=== PATIENT | male | born 1960 ===

== ENCOUNTER 2016-02-18 18:34 | Emergency (ER) | payer MEDICARE, MEDICAID ==
[~2016-02-18] VITALS: Ht 190.5 cm; Wt 95.5 kg
[~2016-02-18 18:34] MED LIST: ONDA8TAB10 PO; OXYC1TAB24 PO
[2016-02-18 19:21] VITALS: BP 174/104; PULSE 100; RESP 15; O2SAT 96
[2016-02-18 21:19] LABS: BASOPHILS % (AUTO) 0.5 % (0-3); EOSINOPHILS % (AUTO) 1.7 % (0-5); MONOCYTES % (AUTO) 8.1 % (4-12); Mean Corpuscular Volume 89.1 fL (81-100); NEUTROPHILS % (AUTO) 72.7 % (40-74); Platelet Count 344 bil/L (150-400)
[2016-02-18] MEDS ORDERED: 0.9% Sodium Chloride 1,000 ML IV SCH (21:25)
[2016-02-18] MEDS ORDERED: Ondansetron 2 mg/mL 2 mL Inj ONE (21:26)
[2016-02-18] MEDS: HYDROmorphone 1 mg/mL Inj IVPUSH PRN ×3 (21:40→23:53)
[2016-02-18 21:43] LABS: Magnesium 1.8 mg/dL (1.6-2.6)
[2016-02-18 22:47] VITALS: BP 193/112; PULSE 89; RESP 20; O2SAT 98
[2016-02-19] MEDS ORDERED: Labetalol 5 mg/mL 4 mL Inj IVPUSH ONE (00:30)
[2016-02-19] MEDS ORDERED: _oxyCODONE/APAP 5-325 mg Tablet PO PRN (00:35)
[2016-02-19 01:17] VITALS: BP 195/109; PULSE 71; RESP 18; O2SAT 97
[2016-02-19] MEDS ORDERED: hydrALAZINE 20 mg/mL Inj IV ONE (01:25)
--- NOTE | 2016-02-19 01:27 | ED.REPORT ---
HPI-Back Pain 40 and Over Date of Service Feb 18, 2016 ED Provider: Karri Lara DO History of Present Illness: Mr. Johnathon Quinteros is a 55 year old gentleman with a past medical history Significant for left renal Ca with nephrectomy in 2003 who presented to the [facility] emergency department after 5 day history of right sided sharp and colicky 10/10 flank pain and 2 day history of nonproductive cough and vomiting after ingestion of food or water. He was seen in the ED 01/30/16 for the same problem. A CT was obtained that showed a possible right sided renal mass with recommendations to follow up with additional imaging. He reports Nausea, vomiting, night sweats, cough, right sided flank pain, increased urination, and intermittant diarrhea. He denies headache, dizziness, chest pain, shortness of breath, abdominal tenderness/rebound tenderness, hematuria / hematochezia. Nursing Notes Stated Complaint: RT SIDED PAIN/ VOMITING Chief Complaint: RIGHT SIDED FLANK PAIN / VOMITING Nursing Notes Reviewed: Yes Allergies: Coded Allergies: morphine (Verified Adverse Reaction, Intermediate, Nausea,Vomiting, ) Scheduled PRN Ondansetron ODT (Ondansetron ODT) 8 Mg Tab.rapdis 8 MG PO Q4H PRN PRN For Nausea oxyCODONE-Acetaminophen 5-325 mg (oxyCODONE-Acetaminophen 5-325 mg) 1 Each Tablet 1-2 TAB PO BID PRN PRN For Pain General Time Seen by MD: 21:20 Chief Complaint Flank pain right, Cough Sudden in Onset?: Yes Past Medical History Past Medical History kidney cancer Past Surgical History left kidney removal 2003 hernia repair Smoking History Current Every Day Smoker (up to 3 packs per day at one point. ) Social History Alcohol Use: Denies alcohol use Drug Use: Denies drug use, THC Ambulatory Status Independent Review of Systems Review of Systems Note: A comprehensive review of systems was conducted with the patient and found to be negative except as above in the History of Present Illness. Physical Exam Physical Exam Notes: General: Late Middle aged gentleman lying in bed in moderate distress, well-developed, well-nourished, appropriately interactive HEENT: Normocephalic, atraumatic. External ears without defect. Pupils equal, round, and reactive to light and accommodation. Anicteric sclerae, moist conjunctivae, and no lid lag. Oropharynx free of erythema and cobble stoning with moist mucosa. Neck: Supple with full range of motion. No jugular venous distension. No bruits. No lymphadenopathy or thyromegaly. Cardiovascular: Regular rate and rhythm with no murmurs, rubs, or gallops appreciated Pulmonary: Clear to auscultation bilaterally with no crackles, wheezes, or rhonchi. Normal respiratory effort with no use of accessory muscles. Abdomen: Bowel tones present. Soft, nontender, nondistended. No hepatosplenomegaly or masses appreciated. Posterior right sided flank tender to palpation. Extremities: No clubbing, cyanosis, edema, or lymphadenopathy appreciated. Skin: Normal temperature, turgor, and texture; no rash, ulcers, or subcutaneous nodules appreciated. Neurological: Cranial nerves grossly intact. Normal muscle strength, tone, and bulk. Reflexes, coordination, and sensory function within normal limits. No known gait impairment. Psychiatric: Normal mood and affect. Alert and oriented to person, place, and time. Initial Vital Signs Vital Signs (First) Date Time Temp Pulse Resp B/P Pulse Ox O2 Delivery O2 Flow Rate FiO2 02/18/16 19:21 36.9 100 15 174/104 96 Room Air Interpretation & Diagnostics Lab Results Interpretation Result Diagram: 02/18/16 2100 02/18/16 2100 Test 02/18/16 21:00 02/19/16 00:43 White Blood Count 15.5th/mm3 (3.8-10.1) Red Blood Count 5.04mil/mm3 (4.40-5.80) Hemoglobin 14.6g/dL (13.8-17.2) Hematocrit 44.9% (41.0-50.0) Mean Corpuscular Volume 89.1fL (81-100) Mean Corpuscular Hemoglobin 29.0pg (27.0-35.0) Mean Corpuscular Hemoglobin Concent 32.5% (32.0-37.0) Red Cell Distribution Width 15.0% (12.3-15.4) Platelet Count 344bil/L (150-400) Neutrophils (%) (Auto) 72.7% (40-74) Lymphocytes (%) (Auto) 16.5% (14-46) Monocytes (%) (Auto) 8.1% (4-12) Eosinophils (%) (Auto) 1.7% (0-5) Basophils (%) (Auto) 0.5% (0-3) Sodium Level 136mEq/L (134-144) Potassium Level 4.1mEq/L (3.5-5.2) Chloride Level 100mEq/L (97-108) Carbon Dioxide Level 19mmol/L (18-29) Blood Urea Nitrogen 13mg/dL (6-24) Creatinine 1.29mg/dL (0.76-1.27) Estimat Glomerular Filtration Rate 62mL/min (>59) Glucose Level 100mg/dL (60-99) Calcium Level 9.1mg/dL (8.5-10.1) Magnesium Level 1.8mg/dL (1.6-2.6) Total Bilirubin 0.2mg/dL (0.0-1.2) Aspartate Amino Transf (AST/SGOT) 20U/L (0-50) Alanine Aminotransferase (ALT/SGPT) 26U/L (0-44) Alkaline Phosphatase 97U/L (25-150) Total Protein 7.7g/dL (6.4-8.4) Albumin 3.6g/dL (3.4-5.0) Lipase 43U/L (13-60) Troponin T 0.010ug/L (0.0-0.011) Re-Eval/Medical Decision Med Decision/Clinical Course - IV Dilaudid 0.5mg IV Q15min PRN severe pain. - CBC, CMP, Mag, Lactic acid, - Initial Troponin was negative. Repeat troponin pending. - EKG - IV NS 2L bolus. - 10 mg IV labetalol for SBP > 180. - CT Abdomen w/ contrast - negative. - Home with [facility] residency clinic referall and percocet. Discharge & Departure Shift Change Sign-Out Discussed Complaint(s): Yes Laboratory Evaluation: Lab evaluation discussed Impression: Primary Impression: Right flank pain Disposition: Home Discharge Condition All VS Reviewed: Yes Condition: Stable Additional Instructions: Your right flank pain and vomiting were controlled with pain medications and your vomiting has self resolved here at the hospital. We got an EKG to look at your heart function as well as a chemical called tropinin, both were normal. You received IV fluids as well. We got a high resolution 3D image of your abdomen and it was negative for acute problems. There were findings that we suggest you follow up on with your primary care physician. Home with [facility] residency clinic referall and percocet. In the hospital your blood pressure was high and you received 10 mg IV labetalol and 20 mg IV hydralazine. We suggest that you follow up with a primary care physician within 1 week of your hospital visit. You received a prescription for Percocet for your right flank pain. - While taking your pain medication DO NOT drive, DO NOT drink alcohol, DO NOT take extra acetaminophen (Tylenol). Referrals: NOPCP (PCP) 1 Week [facility] Residency Clinic Attending Statement I personally take a history performed a physical. 55-year-old male with pretty severe right flank pain. His symptoms were treated appropriately. At discharge she was essentially pain-free. He was moderately hypertensive and this too is treated. He will be given referral follow-up for the high blood pressure. Acute emergent pathology ruled out based on diagnostics. Pain was well controlled. Short course of opiates provided for pain. Recommend close outpatient follow-up. I concur with the note as above. copies to: [facility] Residency [facility] JENNIE LIMA DO Feb 18, 2016 21:27 Karri Lara DO Feb 19, 2016 18:21
[2016-02-19 01:43] VITALS: BP 173/100; PULSE 85; RESP 18; O2SAT 99
--- NOTE | 2016-02-19 14:09 | DRSVH ---
PROCEDURE: CT ABDOMEN AND PELVIS WITH CONTRAST ([id number]) INDICATIONS: Right flank pain and Hypertension TECHNIQUE: After the administration of intravenous contrast, 5 mm thick sections acquired from the diaphragm to the symphysis. 5 mm coronal and sagittal reformats were acquired. For radiation dose reduction, the following was used: automated exposure control, adjustment of mA and/or kV according to patient siz e. COMPARISON: [facility], CT, CT ABD PELVIS W CON, 01/30/2016, 20:50. FINDINGS: Image quality: Excellent. ABDOMEN: Lung bases: Lung bases are clear. Heart size is normal. Solid organs: Liver and spleen are normal in size and enhancement. Gallbladder is unremarkable. Bi liary system is non dilated. Pancreas enhances normally. No adrenal nodules. The left kidney has be en removed. As previously identified, there is an irregular hypoenhancing region within the posterio r cortex of the superior right renal pole measuring 26 mm AP by 24 mm transverse. It is unchanged com pared to prior exam. Peritoneum and bowel: Bowel loops demonstrate normal wall thickness and caliber. No free fluid or a ir. Nodes and vessels: No retroperitoneal or mesenteric adenopathy by size criteria. Aorta and inferior vena cava are normal in size. Miscellaneous: Fat-containing ventral hernia is present. PELVIS: Genitourinary: Bladder wall thickness is normal. Miscellaneous: No inguinal hernias or adenopathy. Bones: No suspicious bony lesions. No vertebral body compression fractures. IMPRESSION: 1. Unchanged appearance of right upper pole complex focus of low attenuation, considered indeterminat e. As previously identified, this could represent a focus of previous infection, inflammation or comp sofia cyst formation. However, cystic neoplasm cannot be excluded. Further evaluation with CT with kirsten l protocol or focal ultrasound is recommended. Dictated by: Jane Quick M.D. on 02/19/2016 at 14:07 Approved by: Jane Quick M.D. on 02/19/2016 at 14:07
== END 2016-02-19 01:44 | disposition home or self-care (01) ==
LOC: SED 18:34
DX: R10.9 Unspecified abdominal pain (principal); F17.210 Nicotine dependence, cigarettes, uncomplicated; F12.10 Cannabis abuse, uncomplicated; Z85.528 Personal history of other malignant neoplasm of kidney; Z90.5 Acquired absence of kidney; Z88.5 Allergy status to narcotic agent
CPT/HCPCS: 36415; 74177; 80053; 83690; 83735; 84484; 85025; 93005; 96361; 96374; 96375; 96376; 99285; J0360; J1170; J2405; J7030; Q9967